=== PATIENT | male | born 1975 | race Hispanic/Latino ===

== ENCOUNTER 2020-08-30 17:35 | Inpatient (IN) | payer BC, OTHER ==
[~2020-08-30] VITALS: Ht 172.7 cm; Wt 92.5 kg
[2020-08-30 18:08] LABS: BASOPHILS % (AUTO) 0.3 % (0.0-5.0); MEAN CORPUSCULAR HEMOGLOBIN 29.7 pg (27.0-33.0); MEAN CORPUSCULAR HGB CONC 33.9 g/dL (32.0-36.0); MEAN CORPUSCULAR VOLUME 87.8 fL (79-99); NEUTROPHILS % (AUTO) 86.5 % (40.0-77.0); PLATELET COUNT (AUTO) 421 K/uL (130-400); RED BLOOD CELL COUNT(AUTO) 5.58 MIL/uL (4.50-6.20); RED CELL DISTRIBUTION WIDTH 12.8 % (11.0-15.5); WHITE BLOOD COUNT (AUTO) 10.4 K/uL (4.8-10.8)
[2020-08-30 18:23] LABS: INR 1.18 (0.85-1.15); PROTHROMBIN TIME 12.7 SEC (9.6-11.6)
[2020-08-30 18:24] LABS: PARTIAL THROMBOPLASTIN TIME 23.9 SEC (26.3-35.5)
[2020-08-30 18:30] LABS: CARBON DIOXIDE 22 mmol/L (21-32); CHLORIDE 101 mmol/L (101-111); GLOMERULAR FILTR. RATE CALC 86 mL/min (>60); GLUCOSE,RANDOM 144 mg/dL (70-105); POTASSIUM 4.9 mmol/L (3.5-5.1); SODIUM SERUM 133 mmol/L (136-145); UREA NITROGEN, BLOOD 16 mg/dL (7-18)
[2020-08-30 18:41] LABS: ALANINE AMINOTRANSFERASE 63 U/L (12-78); ALBUMIN 2.6 g/dL (3.5-5.0); ASPARTATE AMINOTRANSFERASE 41 U/L (10-37); BILIRUBIN,TOTAL 0.9 mg/dL (0.2-1.0); CREATINE KINASE, TOTAL 101 U/L (21-232); MYOGLOBIN 39 ng/mL (10-92); TOTAL PROTEIN, SERUM 7.8 g/dL (6.0-8.3); TROPONIN I < 0.04 ng/mL (0.00-0.06)
[2020-08-30 18:42] LABS: B-TYPE NATRIURETIC PEPTIDE 5 pg/mL (0-100)
[2020-08-30 18:52] LABS: ABG BASE EXCESS -2.5 mmol/L (-2.0-3.0); ABG HCO3 20.4 mmol/L (21.0-28.0); ABG OXYGEN SATURATION 89.7 % (95.0-99.0); ABG PCO2 31 mmHg (35-48)
[2020-08-30] MEDS ORDERED: ACETAMINOPHEN 325 MG TAB PO PRN ×2 (20:30)
[2020-08-30] MEDS ORDERED: ERGOCALCIFEROL (VITAMIN D2) 50,000 UNIT CAPSULE PO ONE (20:30)
[2020-08-30] MEDS: DEXAMETHASONE SOD PHOSPHATE 4 MG/ML 1ML VIAL IVP SCH (20:30)
[2020-08-30] MEDS ORDERED: DOXYCYCLINE 100MG+NS 250ML IV SCH (20:30)
[2020-08-30] MEDS: CEFTRIAXONE 1G VIAL IVP SCH (20:30)
[2020-08-30] MEDS ORDERED: ONDANSETRON 4MG INJ IV PRN (20:30)
[2020-08-30] MEDS ORDERED: PHARMACY COMMUNICATION MISC SCH (20:45)
[2020-08-30] MEDS ORDERED: FAMOTIDINE 20MG VIAL IV SCH (21:00)
[2020-08-30] MEDS: FAMOTIDINE 20MG VIAL IV SCH (21:00)
[2020-08-30] MEDS ORDERED: IOHEXOL-350 75 ML VIAL IV ONE (21:01)
[2020-08-30] MEDS ORDERED: ERGOCALCIFEROL (VITAMIN D2) 50,000 UNIT CAPSULE ONE (21:23)
[2020-08-30] MEDS ORDERED: DEXAMETHASONE SOD PHOSPHATE 10MG/ML 1ML VIAL ONE (21:23)
[2020-08-30] MEDS ORDERED: DOXYCYCLINE 100MG+NS 250ML 250 ML IV ONE (21:24)
[2020-08-30] MEDS ORDERED: ZINC SULFATE 220 CAPSULE ONE (21:24)
[2020-08-30] MEDS ORDERED: FAMOTIDINE 20MG VIAL IV ONE (21:25)
[2020-08-30] MEDS ORDERED: CEFTRIAXONE 1G VIAL ONE (21:25)
[2020-08-30] MEDS: DOXYCYCLINE 100MG+NS 250ML 250 ML IV SCH (21:30)
[2020-08-30 21:48] LABS: THYROID STIMULATING HORMONE 0.14 uIU/mL (0.36-3.74)
[2020-08-30 21:53] LABS: CRP QUANTITATIVE 260.3 mg/L (0.00-9.0)
[2020-08-30] MEDS ORDERED: COMPOUND IV REFRIGERATED 1 EACH IVSOLN MISC PRN (22:00)
[2020-08-30] MEDS ORDERED: REMDESIVIR (EUA) 520 200 MG in 0.9% NACL 250ML 250 ML IV ONE (22:00)
[2020-08-31] MEDS ORDERED: ENOXAPARIN SODIUM 40 MG/0.4 ML SYRINGE SQ ONE (00:51)
[2020-08-31] MEDS ORDERED: 0.9% NACL 250ML 250 ML IV ONE ×2 (04:10→06:06)
[2020-08-31] MEDS: REMDESIVIR LABS MISC SCH (06:00)
[2020-08-31 06:19] LABS: BASOPHILS % (AUTO) 0.2 % (0.0-5.0); LYMPHOCYTES % (AUTO) 8.8 % (21.0-51.0); MEAN CORPUSCULAR HEMOGLOBIN 30.1 pg (27.0-33.0); MEAN CORPUSCULAR HGB CONC 34.1 g/dL (32.0-36.0); MEAN CORPUSCULAR VOLUME 88.2 fL (79-99); MONOCYTES % (AUTO) 5.3 % (3.0-13.0); NEUTROPHILS % (AUTO) 83.5 % (40.0-77.0); PLATELET COUNT (AUTO) 363 K/uL (130-400); RED BLOOD CELL COUNT(AUTO) 4.99 MIL/uL (4.50-6.20); RED CELL DISTRIBUTION WIDTH 12.6 % (11.0-15.5); WHITE BLOOD COUNT (AUTO) 9.4 K/uL (4.8-10.8)
[2020-08-31 06:37] LABS: ALBUMIN 2.4 g/dL (3.5-5.0); BILIRUBIN,TOTAL 0.4 mg/dL (0.2-1.0); CREATININE 1.1 mg/dL (0.5-1.5); POTASSIUM 4.9 mmol/L (3.5-5.1); TOTAL PROTEIN, SERUM 7.1 g/dL (6.0-8.3)
[2020-08-31 06:49] LABS: CRP QUANTITATIVE 193.4 mg/L (0.00-9.0)
[2020-08-31] MEDS: FAMOTIDINE 20MG VIAL IV SCH ×2 (08:44→20:08)
[2020-08-31] MEDS: CEFTRIAXONE 1G VIAL IVP SCH ×2 (08:44→20:07)
[2020-08-31] MEDS: ASCORBIC ACID 500 MG TAB PO SCH (08:44)
[2020-08-31] MEDS: ZINC SULFATE 220 CAPSULE PO SCH (08:44)
[2020-08-31] MEDS: ENOXAPARIN SODIUM 100 MG/1 ML SQ SCH ×2 (08:45→20:09)
[2020-08-31 08:56] VITALS: BP 123/76
[2020-08-31] MEDS ORDERED: ENOXAPARIN SODIUM 40 MG/0.4 ML SYRINGE SQ SCH (09:00)
[2020-08-31] MEDS: DOXYCYCLINE 100MG+NS 250ML 250 ML IV SCH (10:09)
[2020-08-31 12:10] VITALS: BP 135/88
[2020-08-31] MEDS: REMDESIVIR (EUA) 520 100 MG in 0.9% NACL 250ML 250 ML IV SCH (15:06)
[2020-08-31 16:30] VITALS: BP 134/87
[2020-08-31 20:00] VITALS: BP 130/82
[2020-08-31] MEDS: DEXAMETHASONE SOD PHOSPHATE 4 MG/ML 1ML VIAL IVP SCH (20:04)
[2020-08-31] MEDS ORDERED: REMDESIVIR (EUA) 520 100 MG in 0.9% NACL 250ML 250 ML IV SCH (22:00)
[2020-09-01 00:10] VITALS: BP 129/91
[2020-09-01 01:03] LABS: APPEARANCE,URINE Clear (CLEAR); BILIRUBIN,URINE Negative (NEGATIVE); COLOR,URINE Yellow (YELLOW); GLUCOSE, URINE (UA) Negative (NEGATIVE); KETONES,URINE Negative (NEGATIVE); LEUKOCYTE ESTERASE ,URINE Negative (NEGATIVE); NITRATE,URINE Negative (NEGATIVE); OCCULT BLOOD,URINE Negative (NEGATIVE); PROTEIN,URINE Negative (NEGATIVE)
[2020-09-01 03:58] VITALS: BP 131/95
[2020-09-01] MEDS: REMDESIVIR LABS MISC SCH (06:00)
[2020-09-01 06:25] LABS: BASOPHILS % (AUTO) 0.2 % (0.0-5.0); HEMATOCRIT 45.5 % (42-54); LYMPHOCYTES % (AUTO) 10.5 % (21.0-51.0); MEAN CORPUSCULAR HEMOGLOBIN 29.9 pg (27.0-33.0); MEAN CORPUSCULAR HGB CONC 33.8 g/dL (32.0-36.0); MEAN CORPUSCULAR VOLUME 88.3 fL (79-99); MONOCYTES % (AUTO) 4.7 % (3.0-13.0); NEUTROPHILS % (AUTO) 82.8 % (40.0-77.0); PLATELET COUNT (AUTO) 389 K/uL (130-400); RED BLOOD CELL COUNT(AUTO) 5.15 MIL/uL (4.50-6.20); RED CELL DISTRIBUTION WIDTH 12.4 % (11.0-15.5)
[2020-09-01 07:01] LABS: ALBUMIN 2.4 g/dL (3.5-5.0); BILIRUBIN,TOTAL 0.5 mg/dL (0.2-1.0); CREATININE 0.8 mg/dL (0.5-1.5); CRP QUANTITATIVE 62.6 mg/L (0.00-9.0); POTASSIUM 4.9 mmol/L (3.5-5.1); TOTAL PROTEIN, SERUM 6.8 g/dL (6.0-8.3)
[2020-09-01] MEDS ORDERED: FAMOTIDINE 20MG TAB ONE (09:34)
[2020-09-01] MEDS: CEFTRIAXONE 1G VIAL IVP SCH (10:02)
[2020-09-01] MEDS: ASCORBIC ACID 500 MG TAB PO SCH (10:04)
[2020-09-01] MEDS: ENOXAPARIN SODIUM 100 MG/1 ML SQ SCH ×2 (10:04→21:37)
[2020-09-01] MEDS: ZINC SULFATE 220 CAPSULE PO SCH (10:04)
[2020-09-01] MEDS: FAMOTIDINE 20MG TAB PO SCH ×2 (10:31→21:36)
[2020-09-01 11:56] VITALS: BP 122/76
[2020-09-01 15:50] VITALS: BP 127/90
[2020-09-01] MEDS: REMDESIVIR (EUA) 520 100 MG in 0.9% NACL 250ML 250 ML IV SCH (15:57)
[2020-09-01 20:20] VITALS: BP 126/76
[2020-09-01] MEDS: DEXAMETHASONE SOD PHOSPHATE 4 MG/ML 1ML VIAL IVP SCH (21:36)
[2020-09-02] VITALS: BP 124/84
[2020-09-02 05:35] LABS: BASOPHILS % (AUTO) 0.2 % (0.0-5.0); HEMATOCRIT 48.2 % (42-54); LYMPHOCYTES % (AUTO) 10.8 % (21.0-51.0); MEAN CORPUSCULAR HEMOGLOBIN 29.8 pg (27.0-33.0); MEAN CORPUSCULAR VOLUME 87.5 fL (79-99); MONOCYTES % (AUTO) 3.7 % (3.0-13.0); NEUTROPHILS % (AUTO) 83.6 % (40.0-77.0); PLATELET COUNT (AUTO) 396 K/uL (130-400); RED BLOOD CELL COUNT(AUTO) 5.51 MIL/uL (4.50-6.20); RED CELL DISTRIBUTION WIDTH 12.3 % (11.0-15.5)
[2020-09-02 05:54] LABS: ALBUMIN 2.5 g/dL (3.5-5.0); BILIRUBIN,TOTAL 0.6 mg/dL (0.2-1.0); CREATININE 0.9 mg/dL (0.5-1.5); CRP QUANTITATIVE 30.1 mg/L (0.00-9.0); POTASSIUM 4.6 mmol/L (3.5-5.1)
[2020-09-02] MEDS: REMDESIVIR LABS MISC SCH (06:00)
[2020-09-02 08:00] VITALS: BP 114/74
[2020-09-02] MEDS: ASCORBIC ACID 500 MG TAB PO SCH (08:56)
[2020-09-02] MEDS: DOCUSATE SODIUM 100 MG CAP PO SCH (08:56)
[2020-09-02] MEDS: FAMOTIDINE 20MG TAB PO SCH ×2 (08:57→20:33)
[2020-09-02] MEDS: ZINC SULFATE 220 CAPSULE PO SCH (08:57)
[2020-09-02] MEDS: SENNOSIDES 8.6 MG TABLET PO SCH (08:57)
[2020-09-02] MEDS: POLYETHYLENE GLYCOL 3350 17 GM POWD.PACK PO SCH (08:57)
[2020-09-02] MEDS: ENOXAPARIN SODIUM 100 MG/1 ML SQ SCH ×2 (08:58→20:34)
[2020-09-02 11:15] VITALS: BP 119/73
[2020-09-02] MEDS: REMDESIVIR (EUA) 520 100 MG in 0.9% NACL 250ML 250 ML IV SCH (14:18)
[2020-09-02 16:00] VITALS: BP 115/77
[2020-09-02 19:46] VITALS: BP 141/87
[2020-09-02] MEDS: DEXAMETHASONE SOD PHOSPHATE 4 MG/ML 1ML VIAL IVP SCH (20:33)
[2020-09-02 23:37] VITALS: BP 125/80
[2020-09-03 03:31] VITALS: BP 118/79
[2020-09-03 05:49] LABS: BASOPHILS % (AUTO) 0.2 % (0.0-5.0); HEMATOCRIT 49.5 % (42-54); LYMPHOCYTES % (AUTO) 12.1 % (21.0-51.0); MEAN CORPUSCULAR HEMOGLOBIN 30.4 pg (27.0-33.0); MEAN CORPUSCULAR HGB CONC 34.3 g/dL (32.0-36.0); MEAN CORPUSCULAR VOLUME 88.4 fL (79-99); MONOCYTES % (AUTO) 5.3 % (3.0-13.0); PLATELET COUNT (AUTO) 380 K/uL (130-400); RED CELL DISTRIBUTION WIDTH 12.5 % (11.0-15.5); WHITE BLOOD COUNT (AUTO) 8.5 K/uL (4.8-10.8)
[2020-09-03] MEDS: REMDESIVIR LABS MISC SCH (06:00)
[2020-09-03 06:10] LABS: ALBUMIN 2.6 g/dL (3.5-5.0); BILIRUBIN,TOTAL 0.6 mg/dL (0.2-1.0); CREATININE 0.9 mg/dL (0.5-1.5); CRP QUANTITATIVE 14.2 mg/L (0.00-9.0)
[2020-09-03 07:42] VITALS: BP 116/82
[2020-09-03] MEDS: DOCUSATE SODIUM 100 MG CAP PO SCH (08:05)
[2020-09-03] MEDS: POLYETHYLENE GLYCOL 3350 17 GM POWD.PACK PO SCH (08:06)
[2020-09-03] MEDS: SENNOSIDES 8.6 MG TABLET PO SCH (08:06)
[2020-09-03] MEDS: ZINC SULFATE 220 CAPSULE PO SCH (08:07)
[2020-09-03] MEDS: ASCORBIC ACID 500 MG TAB PO SCH (08:07)
[2020-09-03] MEDS: FAMOTIDINE 20MG TAB PO SCH ×2 (08:07→21:37)
[2020-09-03] MEDS: ENOXAPARIN SODIUM 100 MG/1 ML SQ SCH ×2 (08:08→21:38)
[2020-09-03 12:04] VITALS: BP 129/84
[2020-09-03] MEDS: REMDESIVIR (EUA) 520 100 MG in 0.9% NACL 250ML 250 ML IV SCH (13:59)
[2020-09-03 20:09] VITALS: BP 112/75
[2020-09-03] MEDS: DEXAMETHASONE SOD PHOSPHATE 4 MG/ML 1ML VIAL IVP SCH (21:37)
[2020-09-03 23:35] VITALS: BP 108/65
[2020-09-04 04:22] VITALS: BP 111/74
[2020-09-04 04:57] LABS: ALBUMIN 2.6 g/dL (3.5-5.0); BILIRUBIN,DIRECT 0.2 mg/dL (0.0-0.3); BILIRUBIN,TOTAL 0.7 mg/dL (0.2-1.0); TOTAL PROTEIN, SERUM 6.8 g/dL (6.0-8.3)
[2020-09-04 05:23] LABS: BASOPHILS % (AUTO) 0.1 % (0.0-5.0); HEMATOCRIT 48.2 % (42-54); LYMPHOCYTES % (AUTO) 11.3 % (21.0-51.0); MEAN CORPUSCULAR HEMOGLOBIN 29.5 pg (27.0-33.0); MEAN CORPUSCULAR VOLUME 86.7 fL (79-99); NEUTROPHILS % (AUTO) 82.8 % (40.0-77.0); PLATELET COUNT (AUTO) 347 K/uL (130-400); RED BLOOD CELL COUNT(AUTO) 5.56 MIL/uL (4.50-6.20); RED CELL DISTRIBUTION WIDTH 12.6 % (11.0-15.5); WHITE BLOOD COUNT (AUTO) 7.4 K/uL (4.8-10.8)
[2020-09-04 05:31] LABS: CREATININE 0.9 mg/dL (0.5-1.5); CRP QUANTITATIVE 12.2 mg/L (0.00-9.0); POTASSIUM 4.8 mmol/L (3.5-5.1)
[2020-09-04 07:36] VITALS: BP 112/74
[2020-09-04] MEDS: SENNOSIDES 8.6 MG TABLET PO SCH (08:20)
[2020-09-04] MEDS: ASCORBIC ACID 500 MG TAB PO SCH (08:20)
[2020-09-04] MEDS: DOCUSATE SODIUM 100 MG CAP PO SCH (08:20)
[2020-09-04] MEDS: ZINC SULFATE 220 CAPSULE PO SCH (08:20)
[2020-09-04] MEDS: ENOXAPARIN SODIUM 100 MG/1 ML SQ SCH ×2 (08:21→20:27)
[2020-09-04] MEDS: POLYETHYLENE GLYCOL 3350 17 GM POWD.PACK PO SCH (08:21)
[2020-09-04] MEDS: FAMOTIDINE 20MG TAB PO SCH ×2 (08:21→20:21)
[2020-09-04 12:15] VITALS: BP 105/74
[2020-09-04 16:15] VITALS: BP 118/72
[2020-09-04] MEDS: DEXAMETHASONE SOD PHOSPHATE 4 MG/ML 1ML VIAL IVP SCH (20:21)
[2020-09-04 20:36] VITALS: BP 116/65
[2020-09-04 23:56] VITALS: BP 121/75
[2020-09-05 04:05] VITALS: BP 108/69
[2020-09-05 06:13] LABS: BASOPHILS % (AUTO) 0.2 % (0.0-5.0); HEMATOCRIT 50.4 % (42-54); MEAN CORPUSCULAR HEMOGLOBIN 29.5 pg (27.0-33.0); MEAN CORPUSCULAR HGB CONC 32.9 g/dL (32.0-36.0); MEAN CORPUSCULAR VOLUME 89.7 fL (79-99); MONOCYTES % (AUTO) 4.2 % (3.0-13.0); NEUTROPHILS % (AUTO) 81.6 % (40.0-77.0); PLATELET COUNT (AUTO) 339 K/uL (130-400); RED BLOOD CELL COUNT(AUTO) 5.62 MIL/uL (4.50-6.20); RED CELL DISTRIBUTION WIDTH 12.4 % (11.0-15.5); WHITE BLOOD COUNT (AUTO) 8.4 K/uL (4.8-10.8)
[2020-09-05 06:41] LABS: ALBUMIN 2.8 g/dL (3.5-5.0); BILIRUBIN,TOTAL 0.8 mg/dL (0.2-1.0); CRP QUANTITATIVE 8.3 mg/L (0.00-9.0); POTASSIUM 4.4 mmol/L (3.5-5.1); TOTAL PROTEIN, SERUM 7.1 g/dL (6.0-8.3)
[2020-09-05 08:00] VITALS: BP 116/74
[2020-09-05] MEDS: ENOXAPARIN SODIUM 100 MG/1 ML SQ SCH ×2 (08:38→20:33)
[2020-09-05] MEDS: FAMOTIDINE 20MG TAB PO SCH ×2 (08:38→20:29)
[2020-09-05] MEDS: ZINC SULFATE 220 CAPSULE PO SCH (08:38)
[2020-09-05] MEDS: ASCORBIC ACID 500 MG TAB PO SCH (08:38)
[2020-09-05] MEDS: SENNOSIDES 8.6 MG TABLET PO SCH (08:38)
[2020-09-05] MEDS: DOCUSATE SODIUM 100 MG CAP PO SCH (08:38)
[2020-09-05 12:01] VITALS: BP 108/76
[2020-09-05 16:05] VITALS: BP 108/67
[2020-09-05 20:15] VITALS: BP 126/97
[2020-09-05] MEDS: DEXAMETHASONE SOD PHOSPHATE 4 MG/ML 1ML VIAL IVP SCH (20:29)
[2020-09-06] VITALS (7 sets, daily range): BP systolic 96–129; BP diastolic 64–81
[2020-09-06 05:48] LABS: BASOPHILS % (AUTO) 0.2 % (0.0-5.0); EOSINOPHILS % (AUTO) 0.1 % (0.0-8.0); HEMATOCRIT 47.5 % (42-54); LYMPHOCYTES % (AUTO) 11.3 % (21.0-51.0); MEAN CORPUSCULAR HEMOGLOBIN 29.9 pg (27.0-33.0); MEAN CORPUSCULAR HGB CONC 33.5 g/dL (32.0-36.0); MEAN CORPUSCULAR VOLUME 89.5 fL (79-99); MONOCYTES % (AUTO) 4.3 % (3.0-13.0); NEUTROPHILS % (AUTO) 82.2 % (40.0-77.0); PLATELET COUNT (AUTO) 338 K/uL (130-400); RED BLOOD CELL COUNT(AUTO) 5.31 MIL/uL (4.50-6.20); RED CELL DISTRIBUTION WIDTH 12.6 % (11.0-15.5); WHITE BLOOD COUNT (AUTO) 9.3 K/uL (4.8-10.8)
[2020-09-06 06:03] LABS: CRP QUANTITATIVE 6.8 mg/L (0.00-9.0); POTASSIUM 5.5 mmol/L (3.5-5.1)
[2020-09-06] MEDS ORDERED: KAYEXALATE 15GM/60ML PO SCH (07:45)
[2020-09-06] MEDS: ASCORBIC ACID 500 MG TAB PO SCH (08:04)
[2020-09-06] MEDS: ZINC SULFATE 220 CAPSULE PO SCH (08:04)
[2020-09-06] MEDS: FAMOTIDINE 20MG TAB PO SCH ×2 (08:04→22:10)
[2020-09-06] MEDS: ENOXAPARIN SODIUM 100 MG/1 ML SQ SCH ×2 (08:05→22:12)
[2020-09-06] MEDS: DOCUSATE SODIUM 100 MG CAP PO SCH (09:00)
[2020-09-06] MEDS: SENNOSIDES 8.6 MG TABLET PO SCH (09:00)
[2020-09-06 15:55] LABS: POTASSIUM 3.8 mmol/L (3.5-5.1)
[2020-09-06] MEDS: DEXAMETHASONE SOD PHOSPHATE 4 MG/ML 1ML VIAL IVP SCH (22:10)
[2020-09-07 03:52] VITALS: BP 120/74
[2020-09-07 06:13] LABS: CRP QUANTITATIVE 5.7 mg/L (0.00-9.0); MAGNESIUM 2.3 mg/dL (1.80-2.40); POTASSIUM 4.6 mmol/L (3.5-5.1)
[2020-09-07 08:24] VITALS: BP 121/73
[2020-09-07] MEDS: ASCORBIC ACID 500 MG TAB PO SCH (09:25)
[2020-09-07] MEDS: ENOXAPARIN SODIUM 100 MG/1 ML SQ SCH ×2 (09:26→21:00)
[2020-09-07] MEDS: ZINC SULFATE 220 CAPSULE PO SCH (09:26)
[2020-09-07] MEDS: FAMOTIDINE 20MG TAB PO SCH ×2 (09:26→20:54)
[2020-09-07 11:40] VITALS: BP 122/65
[2020-09-07 16:55] VITALS: BP 125/78
[2020-09-07 20:19] VITALS: BP 120/69
[2020-09-07] MEDS: DEXAMETHASONE SOD PHOSPHATE 4 MG/ML 1ML VIAL IVP SCH (20:54)
[2020-09-08 00:27] VITALS: BP 124/73
[2020-09-08 04:52] VITALS: BP 121/75
[2020-09-08 06:53] LABS: BASOPHILS % (AUTO) 0.1 % (0.0-5.0); HEMATOCRIT 45.2 % (42-54); LYMPHOCYTES % (AUTO) 16.3 % (21.0-51.0); MEAN CORPUSCULAR HEMOGLOBIN 29.7 pg (27.0-33.0); MEAN CORPUSCULAR HGB CONC 33.8 g/dL (32.0-36.0); MEAN CORPUSCULAR VOLUME 87.6 fL (79-99); MONOCYTES % (AUTO) 5.3 % (3.0-13.0); NEUTROPHILS % (AUTO) 77.2 % (40.0-77.0); PLATELET COUNT (AUTO) 287 K/uL (130-400); RED BLOOD CELL COUNT(AUTO) 5.16 MIL/uL (4.50-6.20); RED CELL DISTRIBUTION WIDTH 12.4 % (11.0-15.5); WHITE BLOOD COUNT (AUTO) 8.5 K/uL (4.8-10.8)
[2020-09-08 07:12] LABS: ALBUMIN 2.8 g/dL (3.5-5.0); BILIRUBIN,TOTAL 0.7 mg/dL (0.2-1.0); CREATININE 0.9 mg/dL (0.5-1.5); POTASSIUM 4.7 mmol/L (3.5-5.1); TOTAL PROTEIN, SERUM 6.7 g/dL (6.0-8.3)
[2020-09-08] MEDS: ENOXAPARIN SODIUM 100 MG/1 ML SQ SCH (08:11)
[2020-09-08] MEDS: ZINC SULFATE 220 CAPSULE PO SCH (08:11)
[2020-09-08] MEDS: ASCORBIC ACID 500 MG TAB PO SCH (08:11)
[2020-09-08] MEDS: FAMOTIDINE 20MG TAB PO SCH (08:11)
[2020-09-08 08:16] VITALS: BP 120/76
[2020-09-08 12:00] VITALS: BP 119/81
[2020-09-08] MEDS ORDERED: APIX5TAB PO ×3 (15:57→15:59)
[2020-09-08] MEDS ORDERED: PANT40TA55 PO (15:57)
[2020-09-08 17:04] VITALS: BP 121/82
== END 2020-09-08 18:00 | disposition home or self-care (01) | DRG 177 ==
LOC: EDH 17:35 → EDHIP 20:18 → 2AH 08-31 03:14
PROVIDERS: ADMIT Internal Medicine; ATTEND Internal Medicine
PROC: XW13325 Transfusion of Convalescent Plasma (Nonautologous) into Peripheral Vein, Percutaneous Approach, New Technology Group 5 (ICD-10-PCS; 2020-08-31)
PROC: 5A0935A Assistance with Respiratory Ventilation, Less than 24 Consecutive Hours, High Flow/Velocity Cannula (ICD-10-PCS; 2020-08-31)
PROC: 5A0935A Assistance with Respiratory Ventilation, Less than 24 Consecutive Hours, High Flow/Velocity Cannula (ICD-10-PCS; 2020-09-01)
PROC: 5A0935A Assistance with Respiratory Ventilation, Less than 24 Consecutive Hours, High Flow/Velocity Cannula (ICD-10-PCS; 2020-09-02)
PROC: XW033E5 Introduction of Remdesivir Anti-infective into Peripheral Vein, Percutaneous Approach, New Technology Group 5 (ICD-10-PCS; principal; 2020-09-03)
PROC: 5A0935A Assistance with Respiratory Ventilation, Less than 24 Consecutive Hours, High Flow/Velocity Cannula (ICD-10-PCS; 2020-09-03)
PROC: 5A0935A Assistance with Respiratory Ventilation, Less than 24 Consecutive Hours, High Flow/Velocity Cannula (ICD-10-PCS; 2020-09-04)
PROC: 5A0935A Assistance with Respiratory Ventilation, Less than 24 Consecutive Hours, High Flow/Velocity Cannula (ICD-10-PCS; 2020-09-05)
PROC: 5A0935A Assistance with Respiratory Ventilation, Less than 24 Consecutive Hours, High Flow/Velocity Cannula (ICD-10-PCS; 2020-09-06)
PROC: 5A0935A Assistance with Respiratory Ventilation, Less than 24 Consecutive Hours, High Flow/Velocity Cannula (ICD-10-PCS; 2020-09-07)
PROC: 5A0935A Assistance with Respiratory Ventilation, Less than 24 Consecutive Hours, High Flow/Velocity Cannula (ICD-10-PCS; 2020-09-08)
DX: U07.1 COVID-19 (principal); I26.99 Other pulmonary embolism without acute cor pulmonale; J96.01 Acute respiratory failure with hypoxia; J12.82 Pneumonia due to coronavirus disease 2019; D68.59 Other primary thrombophilia; E87.1 Hypo-osmolality and hyponatremia; F17.210 Nicotine dependence, cigarettes, uncomplicated; Z68.31 Body mass index [BMI] 31.0-31.9, adult; K76.0 Fatty (change of) liver, not elsewhere classified; I10 Essential (primary) hypertension; E66.9 Obesity, unspecified; Z79.01 Long term (current) use of anticoagulants; J98.2 Interstitial emphysema
CPT/HCPCS: 36415; 36430; 36600; 71045; 71275; 80048; 80053; 80076; 81003; 82140; 82550; 82728; 82803; 82948; 83605; 83735; 83874; 83880; 84145; 84443; 84484; 85025; 85378; 85610; 85651; 85730; 86140; 86900; 86901; 86927; 87040; 87088; 87426; 93005; 93970; 94760; 99291; G0378; J0696; J1100; J1650; J3490; J7050; Q9967; U0003